=== PATIENT | male | born 1955 | race African-American/Black ===

== ENCOUNTER 2022-02-21 16:03 | Inpatient (IN) | payer OTHER ==
[2022-02-21 16:54] VITALS: BMI 21.4
[2022-02-21] MEDS ORDERED: NALOXONE HCL (KLOXXADO) 8 MG SPRAY NS PRN (18:27)
[2022-02-21] MEDS ORDERED: BENZOCAINE/MENTHOL (CHLORASEPTIC ) LOZENGE MM PRN (18:27)
[2022-02-21] MEDS ORDERED: IBUPROFEN 600 MG TABLET (FP) PO PRN (18:27)
[2022-02-21] MEDS ORDERED: IBUPROFEN 400 MG TABLET (FP) PO PRN (18:27)
[2022-02-21] MEDS ORDERED: MAGNESIUM HYDROX 2400MG/30ML ORAL SUSPENSION 30 ML CUP PO PRN (18:27)
[2022-02-21] MEDS ORDERED: BISMUTH SUBSALICYLATE 524 MG/30 ML PO PRN (18:27)
[2022-02-21] MEDS ORDERED: P-EPHED 60MG/TRIPROLIDI 2.5MG TABLET PO PRN (18:27)
[2022-02-21] MEDS ORDERED: ONDANSETRON *ODT* 4 MG TABLET SL PRN (18:27)
[2022-02-21] MEDS ORDERED: guaiFENesin 200 MG/10 ML 10 ML UNIT-DOSE CUPS PO PRN (18:27)
[2022-02-21] MEDS ORDERED: DICYCLOMINE HCL 10 MG CAPSULE PO PRN (18:27)
[2022-02-21] MEDS ORDERED: POLYETHYLENE GLYCOL (HEALTHYLAX) 3350 17 GM PACKET PO PRN (18:27)
[2022-02-21] MEDS ORDERED: NICOTINE POLACRILEX 2 MG GUM BUC PRN (18:27)
[2022-02-21] MEDS ORDERED: ACETAMINOPHEN 325 MG TABLET (FP) PO PRN ×2 (18:27)
[2022-02-21] MEDS ORDERED: MAG HYDROX/AL HYDROX/SIMETH 30 ML UNIT-DOSE CUP PO PRN (18:27)
[2022-02-21] MEDS ORDERED: LOPERAMIDE HCL 2 MG CAPSULE PO PRN (18:27)
[2022-02-21] MEDS ORDERED: cloNIDine HCL 0.1 MG TABLET PO PRN (18:30)
[2022-02-21] MEDS: MELATONIN 5 MG TABLETS PO PRN (22:02)
[2022-02-22] MEDS: THIAMINE HCL 100 MG TABLET (FP) PO SCH ×2 (04:27→22:49)
[2022-02-22] MEDS: ASPIRIN COATED 81 MG TABLET.EC PO SCH (10:48)
[2022-02-22] MEDS: PRENATAL VITAMINS W/ FOLIC ACID TABLET (FP) PO SCH (10:48)
[2022-02-22] MEDS ORDERED: cloNIDine HCL 0.1 MG TABLET PO PRN (11:49)
[2022-02-22] MEDS ORDERED: methaDONE HCL 10 MG TABLET (FOR DETOX USE ONLY) PO ONE (11:49)
[2022-02-22 12:49] LABS: HEMATOCRIT 37.4 % (35.4-49); HEMOGLOBIN 12.5 GM/dL (11.7-16.9); MCH 29.4 pg (25.7-33.7); MCHC 33.4 g/dl (32.0-35.9); MEAN CELL VOLUME 88.1 fl (80-96); MEAN PLT VOLUME 8.4 fl (7.5-11.1); PLATELET COUNT 321 10^3/uL (134-434); RBC 4.24 M/mm3 (4.00-5.60); RDW 13.6 % (11.9-15.9); WHITE BLOOD COUNT 8.1 K/mm3 (4.0-10.0)
[2022-02-22 13:07] LABS: CALCIUM 9.1 mg/dL (8.5-10.1)
[2022-02-22 13:08] LABS: ALBUMIN 3.6 g/dl (3.4-5.0); BLOOD UREA NITROGEN 8.3 mg/dL (7-18)
[2022-02-22 13:11] LABS: CREATININE 0.7 mg/dL (0.55-1.3)
[2022-02-22 13:12] LABS: TOT PROT 6.7 g/dl (6.4-8.2)
[2022-02-22 13:13] LABS: BILIRUBIN,TOTAL 0.5 mg/dL (0.2-1)
[2022-02-22] MEDS: MELATONIN 5 MG TABLETS PO PRN (22:49)
[2022-02-23] MEDS: ASPIRIN COATED 81 MG TABLET.EC PO SCH (10:58)
[2022-02-23] MEDS: PRENATAL VITAMINS W/ FOLIC ACID TABLET (FP) PO SCH (10:58)
[2022-02-23] MEDS: THIAMINE HCL 100 MG TABLET (FP) PO SCH (22:08)
[2022-02-23] MEDS: MELATONIN 5 MG TABLETS PO PRN (22:08)
[2022-02-24] MEDS ORDERED: methaDONE HCL 10 MG TABLET (FOR DETOX USE ONLY) PO ONE (10:00)
[2022-02-24] MEDS: PRENATAL VITAMINS W/ FOLIC ACID TABLET (FP) PO SCH (10:48)
[2022-02-24] MEDS: ASPIRIN COATED 81 MG TABLET.EC PO SCH (10:48)
[2022-02-24] MEDS: THIAMINE HCL 100 MG TABLET (FP) PO SCH (22:51)
[2022-02-24] MEDS: MELATONIN 5 MG TABLETS PO PRN (22:51)
[2022-02-25 05:57] VITALS: BP 140/80; PULSE 62; RESP 16; TEMP 97.5
[2022-02-25] MEDS: ASPIRIN COATED 81 MG TABLET.EC PO SCH (09:28)
[2022-02-25] MEDS: PRENATAL VITAMINS W/ FOLIC ACID TABLET (FP) PO SCH (09:28)
[2022-02-26] MEDS ORDERED: methaDONE HCL 10 MG TABLET (FOR DETOX USE ONLY) PO ONE (10:00)
== END 2022-02-25 09:27 | disposition home or self-care (01) | DRG 773 ==
LOC: YASAS 16:03 → Y6N 17:30 → UNDOADMIN 17:30 → Y6N 02-22 03:50 → UNDOADMIN 02-22 03:50
PROVIDERS: ADMIT Allergy & Immunology; ATTEND Surgery
PROC: HZ2ZZZZ Detoxification Services for Substance Abuse Treatment (ICD-10-PCS; principal; 2022-02-22)
DX: F11.23 Opioid dependence with withdrawal (principal); F17.210 Nicotine dependence, cigarettes, uncomplicated; Z86.19 Personal history of other infectious and parasitic diseases; R63.4 Abnormal weight loss; Z68.21 Body mass index [BMI] 21.0-21.9, adult
CPT/HCPCS: 36415; 80053; 85027; 86593; 86780; C9803-CS; U0003; U0005